=== PATIENT | male | born 1970 | race Caucasian/White ===

== ENCOUNTER → 2021-09-20 13:14 | Outpatient (CLI) | payer BC, SELFPAY ==
[2021-09-20 15:01] LABS: COVID19 -Nasal RAPID Negative (Negative)
== END ==
PROVIDERS: Family Provider Family Medicine; PCP Family Medicine; Visit Provider Surgery
DX: Z01.812 Encounter for preprocedural laboratory examination (principal); Z20.822 Contact with and (suspected) exposure to COVID-19
CPT/HCPCS: 87635; C9803

== ENCOUNTER 2021-09-21 10:07 | Day surgery (SDC) | payer BC, SELFPAY ==
--- NOTE | 2021-09-21 | PATH_ITS ---
[facility] Accession Number: [id number] . 01 Material submitted: . colon - CECUM POLYP . 02 Diagnosis: Cecum, Polyp, Biopsy: Tubular adenoma. MRV 09/27/2021 1200 Local . 02 Electronically signed: . Ernestina Ledesma MD, Pathologist NPI- [id number] . 01 Gross description: . CECUM POLYP: Received in formalin is 1 fragment(s) of [place], soft tissue measuring 0.6 x 0.2 x 0.1 cm submitted entirely in 1 cassette(s) /CPE 09/22/2021 0633 Local . 02 Pathologist provided ICD-10: D12.0 . 02 CPT . 465005 Performed at: 01 [facility] Located within [facility] [address] [id number] MD Nomi Costa MD Phone: [phone] Performed at: 02 [facility] [place] [address] [place], [place] [id number] MD Ernestina Ledesma MD Phone: [phone]
[2021-09-21] MEDS: LACTATED RINGERS 1,000 ML 42 ML IV (10:33)
[2021-09-21 10:46] VITALS: BP 145/96; PULSE 66; RESP 18; TEMP 36.3; O2SAT 99; BMI 37.2
--- NOTE | 2021-09-21 11:13 | PM.HP.1 ---
History of Present Illness History of Present Illness Date Patient Seen: 09/21/21 Time Patient Seen: 11:13 Chief complaint: SDC Narrative: Shreyas is a 50-year-old man who is here for colonoscopy for colon cancer screening. He reports that has a CPAP that he uses at home. Patient History Family & Social History Social History: household members spouse Tobacco & Substance use: Smoking Status Never smoker alcohol intake current alcohol intake frequency holiday/special occasion Substance Use Type does not use Meds Home Medications and Allergies Home Medications Medication Instructions Recorded Confirmed Type sodium sul 1.479 gram-potas ch See Rx Instructions PO PER PKG DIR 09/11/21 Rx 0.188 gram-magnes sul 0.225 gram #24 tab tablet (Sutab) carvedilol 25 mg tablet 25 mg PO BID 09/20/21 09/21/21 History spironolactone 25 mg tablet 25 mg PO BID 09/21/21 09/21/21 History Allergies Allergy/AdvReac Type Severity Reaction Status Date / Time Penicillins Allergy Intermediate Rash Verified 09/21/21 10:35 morphine AdvReac Intermediate Shakiness Verified 09/21/21 10:36 Exam Vital Signs (past 8 hours): - 09/21/21 10:46 Temperature 97.4 F L Pulse Rate 66 Respiratory Rate 18 Blood Pressure 145/96 H Pulse Oximetry 99 Oxygen Delivery Method Room Air Const General: No acute distress Nutritional Appearance: obese Resp Effort & Inspection: normal respiratory effort GI Palpation: soft Assessment & Plan Assessment and plan (1) Colon cancer screening: Status: Acute Plan We reviewed the risks and benefits of colonoscopy and he would like to proceed. COVID-19 COVID-19 status: Negative Result date/Date tested (Pos, Neg/Pending): 09/20/21 Time Spent With Patient Critical Care time: I spent a total of [] minutes of critical care time on this patient's care today; this time is exclusive of procedural time.
[2021-09-21] MEDS: fentaNYL 250 MCG/5 ML INJ 150 MCG IV (11:25)
[2021-09-21] MEDS: MIDAZOLAM 5 MG/5 ML VIAL IV (11:25)
--- NOTE | 2021-09-21 11:39 | PM.OP.COLON ---
Operative Date/Time/Diagnoses Date of procedure: 09/21/21 Time of procedure: 11:39 Pre-op diagnosis: Colon cancer screening Post-op diagnosis: same Procedure & Clinicians Study performed: Colonoscopy Surgeon: Robles Wells Procedure Notes Procedure in detail: Procedure: The patient was brought to the endoscopy suite, placed in left lateral decubitus position. The patient was connected to monitoring devices. A time-out was performed. Sedation was administered. Once the patient was adequately sedated, a digital rectal exam was performed and was normal. The scope was then inserted and advanced to the cecum where the appendiceal orifice was identified and photographed. There was a small polyp adjacent to the appendiceal orifice which was removed with the Jumbo forceps. The scope was then slowly withdrawn over greater than 6 minutes. Mucosa was thoroughly inspected. No other lesions were found. The scope was retroflexed in the rectum. No abnormalities were noted. The scope was straightened and removed. The patient was awakened and brought to recovery. Versed: 5 mg Fentanyl: 150 mcg EBL: 5 mL Findings: Cecal polyp roughly 5 mm Scope withdrawal time: 9 Sedation minutes: 20 Post-procedure Recommendations: Will call with biopsy results Disposition: PACU
[2021-09-21 11:42] VITALS: BP 134/84; PULSE 58; RESP 28; TEMP 36.3; O2SAT 95
[2021-09-21 11:47] VITALS: BP 127/68; PULSE 58; RESP 14; O2SAT 97
[2021-09-21 11:52] VITALS: BP 128/83; PULSE 58; RESP 15; O2SAT 93
[2021-09-21 11:57] VITALS: BP 126/77; PULSE 55; RESP 15; O2SAT 93
[2021-09-21 12:02] VITALS: BP 125/75; PULSE 54; RESP 17; O2SAT 94
== END 2021-09-21 12:13 | disposition home or self-care (01) ==
PROVIDERS: Family Provider Family Medicine; PCP Family Medicine; Referring Provider Surgery; Visit Provider Surgery
PROC: 0DJD8ZZ Inspection of Lower Intestinal Tract, Via Natural or Artificial Opening Endoscopic (ICD-10-PCS; CPT 45378; principal; 2021-09-21 11:30)
DX: Z12.11 Encounter for screening for malignant neoplasm of colon (principal); D12.0 Benign neoplasm of cecum
CPT/HCPCS: 45380; 99152; J2250; J3010

== ENCOUNTER → 2023-10-15 17:13 | Outpatient (CLI) | payer BC, SELFPAY ==
--- NOTE | 2023-10-15 17:15 | DI.RAD.S_ITS ---
PROCEDURE: XR SHOULDER RT MIN 2V INDICATIONS: R SHOULDER PAIN TECHNIQUE: 3 views of the shoulder were acquired. COMPARISON: None. FINDINGS: Bones: No fractures or dislocations. Moderate acromioclavicular joint osteoarthritic changes are seen with joint space narrowing, subchondral sclerosis and marginal osteophyte formation. No suspicious bony lesions. Visualized ribs appear intact. Soft tissues: No suspicious soft tissue calcifications. IMPRESSION: No acute bony abnormalities. Moderate acromioclavicular joint osteoarthritis. Dictated by: Rodney Long M.D. on 10/16/2023 at 8:29 Approved by: Rodney Long M.D. on 10/16/2023 at 8:30
== END ==
PROVIDERS: Family Provider Family Medicine; PCP Family Medicine; Referring Provider Family Medicine; Visit Provider Family Medicine
DX: M19.011 Primary osteoarthritis, right shoulder (principal); M25.511 Pain in right shoulder
CPT/HCPCS: 73030